=== PATIENT | male | born 1980 | race Caucasian/White ===

== ENCOUNTER 2022-09-01 18:44 | Emergency (ER) | payer SELFPAY ==
[2022-09-01] MEDS ORDERED: Ondansetron ODT 4 MG TAB ONE (19:06)
[2022-09-01 20:34] LABS: #Basophils 0.1 thou/uL (0.0-0.2); #Eosinphils 0.2 thou/uL (0.0-0.7); #Lymphocytes 2.5 thou/uL (1.20-3.40); #Monocytes 0.5 thou/uL (0.11-0.59); #Neutrophils 3.3 thou/uL (1.40-6.50); %Basophils 1.5 % (0.0-1.0); %Eosinophils 3.7 % (0.0-10.0); %Lymphocytes 37.1 % (21.0-51.0); %Monocytes 8.1 % (0.0-10.0); %Neutrophils 49.6 % (42.0-75.0); Hemoglobin 20.1 g/dL (14.0-18.0); MDiff Complete? YES; Manual Diff?? NO; Mean Corpuscular HGB CONC 35.4 g/dL (32.0-36.0); Mean Corpuscular Hemoglobin 36.3 pg (27.0-31.0); Platelet Count 270 10x3/uL (130-400); RBC Distribution Width 11.5 % (11.5-14.5); Red Blood Cell (RBC) Count 5.53 mill/uL (4.70-6.10); White Blood Cell (WBC) Count 6.6 10x3/uL (4.8-10.8)
[2022-09-01 20:44] LABS: ALT (SGPT) 56 U/L (8-55); AST (SGOT) 37 U/L (5-34); Albumin 4.9 g/dL (3.5-5.0); Alkaline Phosphatase 87 U/L (40-110); Anion Gap 15 mmol/L (10-20); BUN (Urea Nitrogen) 10 mg/dL (8.9-20.6); Bilirubin, Total 0.5 mg/dL (0.2-1.2); Calc. Creatinine Clearance 0 mL/min (70-130); Calcium 10.3 mg/dL (7.8-10.44); Carbon Dioxide 25 mmol/L (22-29); Chloride 104 mmol/L (98-107); Estimated GFR 110; Globulin 4.1 g/dL (2.4-3.5); Glucose 86 mg/dL (70-105); Potassium 3.4 mmol/L (3.5-5.1); Sodium 141 mmol/L (136-145)
== END 2022-09-01 21:35 | disposition home or self-care (01) ==
LOC: BURERS 18:44
DX: R55 Syncope and collapse (principal); R11.0 Nausea; K21.9 Gastro-esophageal reflux disease without esophagitis; I10 Essential (primary) hypertension; F17.210 Nicotine dependence, cigarettes, uncomplicated
CPT/HCPCS: 36415; 71045; 80053; 84484; 85025; 93005; 96360; Q0162

== ENCOUNTER 2022-10-20 16:23 | Emergency (ER) | payer BC, SELFPAY ==
[2022-10-20] MEDS ORDERED: Cephalexin 250 MG CAP ONE (17:06)
[2022-10-20] MEDS ORDERED: predniSONE 20 MG TAB ONE (17:06)
== END 2022-10-20 17:10 | disposition home or self-care (01) ==
LOC: BURERS 16:23
DX: H60.13 Cellulitis of external ear, bilateral (principal); K21.9 Gastro-esophageal reflux disease without esophagitis; I10 Essential (primary) hypertension; F17.210 Nicotine dependence, cigarettes, uncomplicated
CPT/HCPCS: 99283; J7512